=== PATIENT | male | born 1950 | race Caucasian/White ===

== ENCOUNTER → 2016-11-26 | Outpatient (CLI) | payer BC, OTHER ==
[~2016-11-26] MED LIST: ACETAMINOPHEN650 M5 PO; ANDROGEL5 GM TD; ANDROGEL5 GM TOP; ANDROGEL75 GM TOP; ASPIR-LOW81 MG PO; CALCIUM 500 +1 EAC4 PO; CALCIUM 600 +1 EA13 PO; CALCIUM 600 +1 EAC1 PO; CALCIUM CARBO1000 MG PO; CELEBREX 200 M200 M1 PO; COQ-10100 MG PO; COUMADIN 10MG T10 M1 PO; COUMADIN 4 MG TA4 M1 PO; COUMADIN 5 MG TA5 M1 PO; FENOFIBRATE160 MG PO; FERREX 150 FORT1 CAP PO; FISH OIL 1,2001 EAC4 PO; FISH OIL500 M2 PO; GLYBURID-METFO1 EAC2 PO; GLYBURIDE 2.52.5 M1 PO; HYDROCODON-ACE1 EAC7 PO; LEVEMIR SUBQ; LIPITOR20 MG PO; LISINOPRIL20 MG PO; MOM PO; PERCOCET; PERCOCET PO; SERTRALINE HCL25 M1 PO; SORINE 80 MG TA80 M1 PO; SOTALOL80 MG PO; VICTOZA0.6 MG/0.1 SUBQ
--- NOTE | ~2016-11-26 | 2DMMODE ---
[facility] [address] [place] [address] 2 D/M-MODE ECHOCARDIOGRAM Name: ANMOL DAS Room #: REG [facility]#: [id number] Admission: 11/26/16 Attend Phys: Austen Espino MD Discharge: Date of : 54 Date of Service: 11/28/16 1620 Report #: [id number] THIS REPORT FOR: //name// APPROVED REPORT Study performed: 11/26/2016 14:11:36 EXAM: Comprehensive 2D, Doppler, and color-flow Echocardiogram Patient Location: Out-Patient Status: routine BSA: 2.29 HR: 66 bpm BP: 175/87 mmHg Other Information Study Quality: Adequate Indications CAD 2D Dimensions LVEF(%): 65.63 (>50%) IVSd: 13.46 (7-11mm) LVOT Diam: 23.27 (18-24mm) LVDd: 57.58 mm PWd: 11.31 (7-11mm) Ascending Ao: 38.57 (22-36mm) LVDs: 36.51 (25-40mm) Aortic Root: 34.66 mm IVC: 2.80 mm Davis's LVEF: 65.63 % Volumes Left Atrial Volume (Systole) Single Plane 4CH: 77.22 mL Single Plane 2CH: 69.61 mL LA ESV Index: 35.00 mL/m2 Aortic Valve AoV Peak Blas.: 1.52 m/s AO Peak Gr.: 9.19 mmHg LVOT Max P.09 mmHg LVOT Max V: 0.72 m/s VASYL Vmax: 2.03 cm2 Mitral Valve IVRT: 73.82 ms Pulmonary Valve [facility] [address] [place] [address] 2 D/M-MODE ECHOCARDIOGRAM Name: ANMOL DAS Room #: [facility]#: [id number] Admission: 11/26/16 Attend Phys: Austen Espino MD Discharge: Date of : 54 Date of Service: 11/28/16 1620 Report #: [id number] PV Peak Blas.: 1.05 m/s PV Peak Gr.: 4.42 mmHg Tricuspid Valve TR Peak Blas.: 2.56 m/s RAP Estimate: 10.00 mmHg TR Peak Gr.: 26.29 mmHg PA Pressure: 36.00 mmHg Left Ventricle The left ventricle is normal size. Mild concentric left ventricular hypertrophy. The left ventricular systolic function is normal. The left ventricular ejection fraction is within the normal range. LVEF is 55-60%. This study is not technically sufficient to allow evaluation of the LV diastolic function due to atrial fibrillation. Right Ventricle Right ventricle is at the upper limits of normal. The right ventricular systolic function is normal. Atria Left atrium is dilated. Right atrium is dilated. Aortic Valve The aortic valve is normal in structure. Trace aortic regurgitation. There is no aortic valvular stenosis. Mitral Valve The mitral valve is normal in structure. Trace mitral regurgitation. No evidence of mitral valve stenosis. Tricuspid Valve The tricuspid valve is normal in structure. There is trace tricuspid regurgitation. The right atrial pressure is estimated at 10 mmHg. There is mild pulmonary hypertension with an estimated PAP of 36 mmHg. Pulmonic Valve The pulmonary valve is normal in structure. Trace pulmonic regurgitation. Great Vessels The aortic root is normal in size. The ascending aorta is mildly dilated. IVC is dilated and collapses >50% with inspiration. Pericardium [facility] [address] [place] [address] 2 D/M-MODE ECHOCARDIOGRAM Name: ANMOL DAS Ovi Room #: [facility]#: [id number] Admission: 11/26/16 Attend Phys: Austen Espino MD Discharge: Date of : 54 Date of Service: 11/28/16 1620 Report #: [id number] There is no pericardial effusion. <Conclusion> The left ventricle is normal size. Mild concentric left ventricular hypertrophy. LVEF is 55-60%. Left atrium is dilated. Right atrium is dilated. The aortic valve is normal in structure. Trace aortic regurgitation. The mitral valve is normal in structure. Trace mitral regurgitation. The tricuspid valve is normal in structure. There is trace tricuspid regurgitation. The right atrial pressure is estimated at 10 mmHg. There is mild pulmonary hypertension with an estimated PAP of 36 mmHg. The pulmonary valve is normal in structure. Trace pulmonic regurgitation. The ascending aorta is mildly dilated. <ELECTRONICALLY SIGNED> By: Dominick Inman MD 11/28/16 1620 162 19 Dominick Inman MD /INF
== END ==
LOC: CV 11-18 13:09
DX: I27.2 Other secondary pulmonary hypertension (principal); I25.10 Atherosclerotic heart disease of native coronary artery without angina pectoris

== ENCOUNTER → 2018-01-19 | Outpatient (CLI) | payer BC, OTHER ==
--- NOTE | ~2018-01-19 | 2DMMODE ---
[facility] [address] [place] [address] 2 D/M-MODE ECHOCARDIOGRAM Name: ANMOL DAS MIGDALIA Room #: REG CL [facility]#: [id number] Admission: 01/19/18 Attend Phys: Austen Espino MD Discharge: Date of : 54 Date of Service: 01/19/18 1020 Report #: [id number] THIS REPORT FOR: //name// APPROVED REPORT Study performed: 01/19/2018 08:58:23 EXAM: Comprehensive 2D, Doppler, and color-flow Echocardiogram Patient Location: Out-Patient Status: routine BSA: 2.33 HR: 66 bpm BP: 140/78 mmHg Rhythm: Atrial Fibrillation Other Information Study Quality: Adequate Technically limited study due to obesity. Indications Coronary artery disease. Hx: CABG, Afib with ablation, HTN, HLP, DM 2D Dimensions RVDd: 41.43 mm IVSd: 12.95 (7-11mm) LVOT Diam: 21.62 (18-24mm) LVDd: 55.11 mm PWd: 12.68 (7-11mm) Ascending Ao: 34.69 (22-36mm) LVDs: 32.69 (25-40mm) Aortic Root: 34.33 mm Volumes Left Atrial Volume (Systole) Single Plane 4CH: 60.96 mL Single Plane 2CH: 91.36 mL LA ESV Index: 34.00 mL/m2 Aortic Valve AoV Peak Blas.: 1.65 m/s AO Peak Gr.: 11.99 mmHg Mitral Valve MV Decel. Time: 203.15 ms MV E Max Blas.: 1.16 m/s IVRT: 64.59 ms [facility] [address] [place] [address] 2 D/M-MODE ECHOCARDIOGRAM Name: ANMOL DAS Room #: REG [facility]#: [id number] Admission: 01/19/18 Attend Phys: Austen Espino MD Discharge: Date of : 54 Date of Service: 01/19/18 1020 Report #: [id number] Pulmonary Valve PV Peak Blas.: 0.88 m/s PV Peak Gr.: 3.09 mmHg Tricuspid Valve TR Peak Blas.: 3.00 m/s RAP Estimate: 10.00 mmHg TR Peak Gr.: 35.98 mmHg PA Pressure: 46.00 mmHg Left Ventricle The left ventricle is normal size. There is normal LV segmental wall motion. Mild concentric left ventricular hypertrophy. Left ventricular systolic function is normal. LVEF is 55-60%. This study is not technically sufficient to allow evaluation of the LV diastolic function due to atrial fibrillation. Right Ventricle Right ventricle is at the upper limits of normal. The right ventricular systolic function is normal. Atria Left atrium is dilated. Right atrium is dilated. Aortic Valve The Aortic valve is mildly sclerotic. Trace aortic regurgitation. There is no aortic valvular stenosis. Mitral Valve Mitral valve leaflets are mildly thickened. Mild to moderate mitral regurgitation. Tricuspid Valve The tricuspid valve is normal in structure. Mild tricuspid regurgitation. Estimated PAP is 45mmHg. Pulmonic Valve The pulmonary valve is normal in structure. Trace pulmonic regurgitation. Great Vessels The aortic root is normal in size. The ascending aorta is normal in size. IVC is dilated and collapses >50% with inspiration. Pericardium There is no pericardial effusion. [facility] [address] [place] [address] 2 D/M-MODE ECHOCARDIOGRAM Name: ANMOL DAS Room #: REG CL [facility]#: [id number] Admission: 01/19/18 Attend Phys: Austen Espino MD Discharge: Date of : 54 Date of Service: 01/19/18 1020 Report #: [id number] <Conclusion> The left ventricle is normal size. Mild concentric left ventricular hypertrophy. Left ventricular systolic function is normal. Right ventricle is at the upper limits of normal. Left atrium is dilated. The Aortic valve is mildly sclerotic. Trace aortic regurgitation. Mild to moderate mitral regurgitation. Mild tricuspid regurgitation. Estimated PAP is 45mmHg. <ELECTRONICALLY SIGNED> By: Austen Espino MD 01/19/18 1020 1020 1020 Austen Espino MD /ASHWIN
== END ==
LOC: CV 07:35
DX: I08.1 Rheumatic disorders of both mitral and tricuspid valves (principal); I25.10 Atherosclerotic heart disease of native coronary artery without angina pectoris; I10 Essential (primary) hypertension; I48.91 Unspecified atrial fibrillation; E78.5 Hyperlipidemia, unspecified; E11.9 Type 2 diabetes mellitus without complications; Z95.1 Presence of aortocoronary bypass graft

== ENCOUNTER → 2019-01-29 | Outpatient (CLI) | payer BC, OTHER ==
--- NOTE | 2019-01-29 15:08 | 2DMMODE ---
[facility] [employer] [place] [address] 2 D/M-MODE ECHOCARDIOGRAM Name: ANMOL DAS MIGDALIA Room #: REG CL [facility]#: [id number] Admission: 01/29/19 Attend Phys: Austen Espino MD Discharge: Date of : 54 Report #: [id number] THIS REPORT FOR: //name// APPROVED REPORT Study performed: 01/29/2019 14:23:10 EXAM: Comprehensive 2D, Doppler, and color-flow Echocardiogram Patient Location: Echo lab Status: routine BSA: 2.37 HR: 67 bpm BP: 158/78 mmHg Other Information Study Quality: Adequate Indications Diabetes Atrial Fibrillation CAD Hypertension/HDD 2D Dimensions RVDd: 42.52 mm IVSd: 14.85 (7-11mm) LVOT Diam: 22.47 (18-24mm) LVDd: 42.86 mm PWd: 15.24 (7-11mm) Ascending Ao: 36.56 (22-36mm) LVDs: 31.19 (25-40mm) Aortic Root: 34.33 mm IVC: 23.00 mm Volumes Left Atrial Volume (Systole) Single Plane 4CH: 45.26 mL Single Plane 2CH: 45.24 mL LA ESV Index: 20.00 mL/m2 Aortic Valve AoV Peak Blas.: 1.94 m/s AO Peak Gr.: 15.11 mmHg LVOT Max P.20 mmHg LVOT Max V: 1.02 m/s VASYL Vmax: 2.09 cm2 Mitral Valve MV Decel. Time: 231.98 ms [facility] [email or web address] [address] 2 D/M-MODE ECHOCARDIOGRAM Name: ANMOL DAS MIGDALIA Room #: REG CL [facility]#: [id number] Admission: 01/29/19 Attend Phys: Austen Espino MD Discharge: Date of : 54 Report #: [id number] MV E Max Blas.: 1.44 m/s IVRT: 48.44 ms Pulmonary Valve PV Peak Blas.: 1.14 m/s PV Peak Gr.: 5.23 mmHg Tricuspid Valve TR Peak Blas.: 2.85 m/s RAP Estimate: 10.00 mmHg TR Peak Gr.: 32.45 mmHg PA Pressure: 43.00 mmHg Left Ventricle The left ventricle is normal size. Mild concentric left ventricular hypertrophy. The left ventricular systolic function is normal. The left ventricular ejection fraction is within the normal range. LVEF is 55-60%. This study is not technically sufficient to allow evaluation of the LV diastolic function due to atrial fibrillation. Right Ventricle The right ventricle is normal size. The right ventricular systolic function is normal. Atria The left atrium size is normal. Right atrium is mildly dilated. Aortic Valve Aortic valve leaflets are mildly thickened. Trace aortic regurgitation. There is no aortic valvular stenosis. Mitral Valve The mitral valve is normal in structure. Mild mitral regurgitation. No evidence of mitral valve stenosis. Tricuspid Valve The tricuspid valve is normal in structure. Trace to mild tricuspid regurgitation. PAP is estimated at 43 mmHg. Pulmonic Valve The pulmonary valve is normal in structure. Mild pulmonic regurgitation. Great Vessels The aortic root is normal in size. IVC is dilated and collapses >50% with inspiration. [facility] [email or web address] [address] 2 D/M-MODE ECHOCARDIOGRAM Name: DAS,ANMOLCATY NEGRON Room #: REG [facility]#: [id number] Admission: 01/29/19 Attend Phys: Austen Espino MD Discharge: Date of : 54 Report #: [id number] Pericardium There is no pericardial effusion. <Conclusion> The left ventricle is normal size. Mild concentric left ventricular hypertrophy. The left ventricular systolic function is normal. The right ventricle is normal size. The left atrium size is normal. Aortic valve leaflets are mildly thickened. Trace aortic regurgitation. Mild mitral regurgitation. Trace to mild tricuspid regurgitation. PAP is estimated at 43 mmHg. <ELECTRONICALLY SIGNED> By: Austen Espino MD 01/29/19 1508 1508 1508 Austen Espino MD /INF
== END ==
LOC: CV 13:17
DX: I08.8 Other rheumatic multiple valve diseases (principal); I25.10 Atherosclerotic heart disease of native coronary artery without angina pectoris; I48.91 Unspecified atrial fibrillation; E11.9 Type 2 diabetes mellitus without complications; I11.0 Hypertensive heart disease with heart failure

== ENCOUNTER → 2019-10-03 | Outpatient (CLI) | payer OTHER | LOC: SJCVCIMAG 08-01 11:47 | PROVIDERS: ATTEND Internal Medicine Cardiovascular Disease | DX: I48.92 Unspecified atrial flutter (principal); I48.91 Unspecified atrial fibrillation; I25.810 Atherosclerosis of coronary artery bypass graft(s) without angina pectoris; I10 Essential (primary) hypertension; R60.9 Edema, unspecified; E78.5 Hyperlipidemia, unspecified; E11.9 Type 2 diabetes mellitus without complications; Z79.4 Long term (current) use of insulin; Z79.82 Long term (current) use of aspirin; Z79.899 Other long term (current) drug therapy; Z95.1 Presence of aortocoronary bypass graft; Z82.49 Family history of ischemic heart disease and other diseases of the circulatory system ==

== ENCOUNTER → 2020-04-02 | Outpatient (CLI) | payer OTHER | LOC: SJCVC 13:35 | PROVIDERS: ATTEND Internal Medicine | DX: R94.31 Abnormal electrocardiogram [ECG] [EKG] (principal); I10 Essential (primary) hypertension; E78.00 Pure hypercholesterolemia, unspecified; I48.91 Unspecified atrial fibrillation; I25.10 Atherosclerotic heart disease of native coronary artery without angina pectoris; E11.9 Type 2 diabetes mellitus without complications; E78.5 Hyperlipidemia, unspecified; Z95.1 Presence of aortocoronary bypass graft ==

== ENCOUNTER → 2020-04-22 | Outpatient (CLI) | payer OTHER | LOC: SJCVCIMAG 07:40 | PROVIDERS: ATTEND Internal Medicine Cardiovascular Disease | DX: I49.3 Ventricular premature depolarization (principal); I25.89 Other forms of chronic ischemic heart disease; I25.10 Atherosclerotic heart disease of native coronary artery without angina pectoris; I48.91 Unspecified atrial fibrillation; E78.00 Pure hypercholesterolemia, unspecified; E11.22 Type 2 diabetes mellitus with diabetic chronic kidney disease; I12.9 Hypertensive chronic kidney disease with stage 1 through stage 4 chronic kidney disease, or unspecified chronic kidney disease; N18.9 Chronic kidney disease, unspecified; Z95.1 Presence of aortocoronary bypass graft; Z79.82 Long term (current) use of aspirin; Z79.84 Long term (current) use of oral hypoglycemic drugs; Z79.899 Other long term (current) drug therapy ==

== ENCOUNTER → 2020-05-07 | Outpatient (CLI) | payer OTHER | LOC: SJCVCIMAG 10:58 | PROVIDERS: ATTEND Internal Medicine Cardiovascular Disease | DX: I08.3 Combined rheumatic disorders of mitral, aortic and tricuspid valves (principal); I11.9 Hypertensive heart disease without heart failure; R94.31 Abnormal electrocardiogram [ECG] [EKG]; I25.10 Atherosclerotic heart disease of native coronary artery without angina pectoris; I48.91 Unspecified atrial fibrillation; E78.00 Pure hypercholesterolemia, unspecified; R60.9 Edema, unspecified; E11.9 Type 2 diabetes mellitus without complications; E78.5 Hyperlipidemia, unspecified; Z95.1 Presence of aortocoronary bypass graft; Z96.653 Presence of artificial knee joint, bilateral; Z79.82 Long term (current) use of aspirin; Z79.4 Long term (current) use of insulin; Z79.899 Other long term (current) drug therapy; Z82.49 Family history of ischemic heart disease and other diseases of the circulatory system ==